=== PATIENT | male | born 1955 | race Caucasian/White ===

== ENCOUNTER → 2017-01-31 | Outpatient (CLI) | payer OTHER ==
[~2017-01-31] MED LIST: ADVIL200 MG PO; BISOPROLOL-HCT1 EAC2 PO; CENTRUM SILVER1 EAC5 PO; IRON325 MG PO; LO-DOSE ASPIRIN81 M2 PO; VITAMIN C500 M1 PO; ZESTRIL20 MG PO
== END | disposition home or self-care (01) ==
DX: M17.11 Unilateral primary osteoarthritis, right knee (principal); R26.2 Difficulty in walking, not elsewhere classified; M62.81 Muscle weakness (generalized); M25.661 Stiffness of right knee, not elsewhere classified
CPT/HCPCS: 97110 GP; 97150 GO; 97161 GP; 97165 GO

== ENCOUNTER 2017-02-07 09:16 | Inpatient (IN) | payer OTHER ==
[~2017-02-07] VITALS: Ht 177.8 cm; Wt 126.6 kg
[2017-02-07 10:29] VITALS: BP 134/77
[2017-02-07 10:33] VITALS: BP 134/77
[2017-02-07 15:38] LABS: HEMATOCRIT 44.5 % (38.0-50.0); MCH 28.6 PG (29.0-34.0); MCHC 31.7 G/DL (30.0-36.0); MCV 90.3 FL (86-99); MEAN PLAT.VOLUME 10.7 uM^3 (9.0-12.4); PLATELET COUNT 214 K/uL (156-360); RBC DIS.WIDTH-CV 13.9 % (11.8-14.6); RBC DIS.WIDTH-SD 45.8 % (39-53); RED BLOOD COUNT 4.93 M/uL (4.00-5.50); WHITE BLOOD COUNT 8.9 K/uL (4.1-10.2)
[2017-02-07 16:40] VITALS: BP 110/66
[2017-02-07 20:02] VITALS: BP 117/65
[2017-02-08] VITALS (8 sets, daily range): BP systolic 111–157; BP diastolic 57–75
[2017-02-08 05:50] LABS: HEMATOCRIT 41.1 % (38.0-50.0); MCV 88.2 FL (86-99)
[2017-02-08 06:15] LABS: ANION GAP 8 MEQ/L (2-14); CHLORIDE 100 MEQ/L (99-109); GFR ESTIMATE (CALCULATED) > 59 mL/min/; GLUCOSE 119 mg/dL (70-99); POTASSIUM 4.3 MEQ/L (3.7-5.4); SAMPLE HEMOLYSIS CHECK 0; SAMPLE ICTERIC CHECK 0; SAMPLE LIPEMIA CHECK 0; SODIUM 134 MEQ/L (136-147); UREA NITROGEN (BUN) 13 mg/dL (9-23)
[2017-02-08 19:11] LABS: INTER. NORMALIZED RATIO 1.3; PROTHROMBIN TIME 12.8 (9.2-11.2)
[2017-02-09] VITALS (7 sets, daily range): BP systolic 107–129; BP diastolic 57–76
[2017-02-09 05:05] LABS: HEMATOCRIT 42.6 % (38.0-50.0); MCV 88.9 FL (86-99)
[2017-02-09 05:16] LABS: INTER. NORMALIZED RATIO 1.2; PROTHROMBIN TIME 12.7 (9.2-11.2)
[2017-02-09] MEDS ORDERED: IRON325 MG PO (08:33)
[2017-02-09] MEDS ORDERED: COUMADIN1 MG PO (08:34)
[2017-02-09] MEDS ORDERED: CELECOXIB200 MG PO (08:36)
[2017-02-09] MEDS ORDERED: HYDROMORPHONE HC4 MG PO (08:36)
[2017-02-10] VITALS: BP 122/76
[2017-02-10 06:14] LABS: INTER. NORMALIZED RATIO 1.2; PROTHROMBIN TIME 12.7 (9.2-11.2)
[2017-02-10 08:25] VITALS: BP 143/63
== END 2017-02-10 11:49 | disposition home or self-care (01) | DRG 468 ==
LOC: 2SOUTH 09:16 → 3WEST 16:06 → 2SOUTH 16:12 → 3EAST 02-09 17:38
PROVIDERS: Orthopaedic Surgery; Physician Assistant
DX: M17.9 Osteoarthritis of knee, unspecified (principal); Z96.651 Presence of right artificial knee joint; I10 Essential (primary) hypertension; Z88.1 Allergy status to other antibiotic agents; Z79.82 Long term (current) use of aspirin; Z87.891 Personal history of nicotine dependence
CPT/HCPCS: 73560; 80048; 84295; 85014; 85018; 85027; 85610; 97530 GP; J0131; J0690; J1170; J2250; J2405; J3010; J7030; J7050